=== PATIENT | male | born 1975 | race Caucasian/White ===

== ENCOUNTER 2023-07-01 13:56 | Outpatient (AMB) | payer OTHER, SELFPAY ==
[2023-07-01 14:12] VITALS: BP 122/74; PULSE 89; O2SAT 98; BMI 33.2
--- NOTE | 2023-07-01 14:12 | MHC.PC.OV ---
Vital Signs 07/01/23 14:12 Height 5 ft 11 in Weight 238 lb 2 oz BMI 33.2 BP 122/74 Blood Pressure Location Lt brachial Position Sitting Pulse 89 Pulse Source Pulse Oximeter Pulse Oximetry (%) 98 Oxygen Delivery Method Room Air Intake Visit Reasons: est care Intake Note: Patient is here as a new patient with lump on left side of neck, and he had cancer, he has also left foot pain, no injury for 2-3 months. Allergies No Known Allergies Allergy (Verified 07/01/23 14:16) Tobacco use date assessed: 07/01/23 Dental Screening Dental Screen Date: 07/01/23 Did you have a dental visit in the last 12 months?: Yes Did you have a dental problem in the last 6 months where you did not have access to dental care?: No Was dental information given to patient?: Patient has dentist HPI est care HPI Details New patient Prior PCP:?Dr. Voss Last office visit/CPE: 1.5 years Acute issue(s): Hx Skin CA 5 years ago Now has lump on L side of neck under ear L foot pain PMHx: Skin CA SurgHx: Excision of Skin Ca on back, Ear tubes, tonsils FHx: Mom: GI issues otherwise none/unknown. SocHx: No drugs. EtOH none. No drugs. [facility] Medical History (Updated 07/01/23 @ 15:03 by Dave Guevara) Sleep apnea Skin cancer Surgical History (Updated 07/01/23 @ 14:24 by Zandra Pink CMA) History of placement of ear tubes History of tonsillectomy Social History (Updated 07/01/23 @ 14:29 by Zandra Pink CMA) Household Members: Family Housing: House Patient Tobacco Use Status: Never used Tobacco e-Cigarette/Vaping Use: Never Used Substance Use Type: Marijuana Have you been hit, kicked, punched, or otherwise hurt by someone within the past year? 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 Cognitive needs: No Hearing needs: No Vision needs: Yes (reading glasses) Questionnaire Thrive Questionnaire Date Thrive assessed: 07/01/23 I am a: Patient What is your living situation today?: I have a steady place to live Within the past 12 months, did the food you bought not last and you didn't have the money to get more?: Never true Within the past 12 months, did you worry whether your food would run out before you got money to buy more?: Never true Do you have trouble paying for medicines?: No Do you have trouble getting transportation to medical appointments?: No Do you have trouble paying your heating and electricity bill?: No Do you have trouble taking care of your child, family member or friend?: No Do you have trouble with day-to-day activities such as bathing, preparing meals, shopping, managing finances, etc.?: No Are you currently unemployed and looking for a job?: No Are you interested in more education?: No AUDIT C Alcohol Use Questionnaire (AUDIT-C) 1. How often do you have a drink containing alcohol?: Never 3. How often do you have six or more drinks on one occasion?: Never Total Score: 0 JORGE-7 AMB Questionnaire JORGE-7 Date JORGE - 7 assessed: 07/01/23 Feeling nervous, anxious, or on edge: 0 = Not at all Not being able to stop or control worryin = Not at all Worrying too much about different things: 0 = Not at all Trouble relaxin = Not at all Being so restless that it is hard to sit still: 0 = Not at all Becoming easily annoyed or irritable: 0 = Not at all Feeling afraid as if something awful might happen: 0 = Not at all Total JORGE-7 score (0-4 normal; 5-9 mild; 10-14 moderate; 15-21 severe): 0 Source: Developed by Drs. Bandar Regan, Jennifer Lee, Ismael Zaragoza and colleagues, with an educational little from [employer]. Review of Systems Const Denies chills, Denies fatigue, Denies fever(s), Denies headache(s) and Denies weakness ENT Denies dizziness and Denies headache(s) Card Denies chest pain, Denies lightheadedness, Denies dyspnea and Denies other (Palpitations) Resp Denies cough, Denies dyspnea, Denies wheezing and Denies other ( shortness of breath) Musc Denies numbness and Denies tingling Neuro Denies dizziness, Denies headache(s), Denies numbness, Denies tingling, Denies paresthesias and Denies weakness Psych Denies anxiety and Denies depression Endo Denies fatigue Aller/Immun Denies wheezing Physical exam (Primary Care) Vital Signs: Last Vital Signs Pulse 89 07/01/23 14:12 BP 122/74 07/01/23 14:12 Pulse Ox 98 07/01/23 14:12 Oxygen Delivery Method Room Air 07/01/23 14:12 BMI result Body Mass Index 33.2 Tobacco/Smoking Status: Tobacco use Status Tobacco use date assessed 07/01/23 07/01/23 14:34 Patient Tobacco Use Status Never used Tobacco 07/01/23 14:34 e-Cigarette/Vaping Use Never Used 07/01/23 14:34 Thrive Assessment: Date of Thrive Assessment Date Thrive assessed 07/01/23 07/01/23 14:34 Const General: no acute distress and well developed Nutritional Appearance: well nourished Orientation/consciousness: patient oriented x3 HENMT Head: Yes normocephalic and Yes atraumatic Eyes General: appearance normal, both eyes and all related structures Pupils: Equal, round and reactive pupils present EOM: EOMs intact bilaterally Resp Effort & Inspection: normal respiratory effort Auscultation: clear to auscultation bilaterally Cardio Rate: regular rate Rhythm: regular rhythm Heart sounds: S1 normal heart sound present, S2 normal heart sound present, no gallops, no murmurs and no rubs Neuro General: patient oriented x3 and gait normal Cranial nerves: Yes Equal, round and reactive pupils present Psych Affect: normal affect Assessment and Plan Assessment & Plan (1) Plantar fasciitis, left: Code(s): M72.2 - Plantar fascial fibromatosis Plan: Demonstrated?exercises?which?he?will?try. Also?ice/heat NSAIDs If?not?improving,?will?refer?to?Podiatry (2) Mass of preauricular region: Code(s): R22.0 - Localized swelling, mass and lump, head Plan: Check?ultrasound?of?head?and?neck?to?rule?out?malignancy. Most?likely?resolving?parotitis Hydrate?well, can?use?sorry?candies,?warm?compresses?and?ibuprofen (3) Varicose veins of ankle: Code(s): I83.90 - Asymptomatic varicose veins of unspecified lower extremity Plan: Patient?stands?10-16?hours?a?day Will?send?compression?stockings?to?medical?supply?store?for?him (4) History of skin cancer: Code(s): Z85.828 - Personal history of other malignant neoplasm of skin Plan: Follow-up?with?dermatology?as?recommended (5) Laboratory exam ordered as part of routine general medical examination: Code(s): Z00.00 - Encounter for general adult medical examination without abnormal findings Plan: Check?lab Orders: Orders US soft tiss head and/or neck Today R22.0 - Localized swelling, mass and lump, head Comprehensive [place]. Panel Fast Today Z00.00 - Encounter for general adult medical examination without abnormal findings Complete Blood Count Auto Diff Today Z00.00 - Encounter for general adult medical examination without abnormal findings Lipid Panel Today Z00.00 - Encounter for general adult medical examination without abnormal findings Prostate Specific Antigen Scr Today Z12.5 - Encounter for screening for malignant neoplasm of prostate TSH reflex Free T4 Today Z00.00 - Encounter for general adult medical examination without abnormal findings UA and rflx microscopic Today Z00.00 - Encounter for general adult medical examination without abnormal findings Microalbumin, Random (w Creat) Today I10 - Essential (primary) hypertension Medications: New compr.stocking,knee,long,large 20-30?mmHg,?As directed, 90 days 12 ea 1RF I83.90 - Asymptomatic varicose veins of unspecified lower extremity Coding Level of Care Code New Pt Level 4 (09074) Diagnoses Plantar fasciitis, left M72.2 Mass of preauricular region R22.0 Varicose veins of ankle I83.90 History of skin cancer Z85.828 Laboratory exam ordered as part of routine general medical examination Z00.00
== END 2023-07-01 15:10 | disposition home or self-care (01) ==
PROVIDERS: PCP Family Medicine; Visit Provider Family Medicine
DX: M72.2 Plantar fascial fibromatosis (principal); R22.0 Localized swelling, mass and lump, head; I83.90 Asymptomatic varicose veins of unspecified lower extremity; Z85.828 Personal history of other malignant neoplasm of skin; Z00.00 Encounter for general adult medical examination without abnormal findings
CPT/HCPCS: 99204

== ENCOUNTER 2023-07-02 07:32 | Outpatient (REF) | payer OTHER, SELFPAY ==
[2023-07-02 11:39] LABS: Appearance Urine Clear; Color Urine Yellow; Glucose Urine UA Negative (Negative); Leukocyte Esterase Urine Negative (Negative); Nitrite Urine Negative (Negative); PH 5.5 (5.0-9.0); Specific Gravity - Urine 1.025 (1.005-1.025); Urine Blood Negative (Negative); Urine Ketones Negative (Negative); Urine Protein Negative (Neg-Trace)
[2023-07-02 11:51] LABS: MANUAL DIFF FLAG NO
[2023-07-02 12:07] LABS: Basophils Absolute Auto 0.1 X10*3/uL (0.0-0.2); Basophils Percent Auto 0.9 % (0-2); Eosinophils Absolute Auto 0.2 X10*3/uL (0.0-0.4); Eosinophils Percent Auto 3.1 % (0-4); Hematocrit 47.5 % (42.0-52.0); Hemoglobin 15.8 g/dl (14.0-18.0); Imm Gran Abs Auto 0.02 X10*3/uL (0.00-0.03); Imm Gran Pct Auto 0.3 % (0.0-0.4); Lymphocytes Absolute Auto 2.2 X10*3/uL (1.2-4.9); Lymphocytes Percent Auto 37.8 % (20-40); Mean Corpuscular HGB Conc 33.3 g/dl (31.0-36.0); Mean Corpuscular Hemoglobin 28.9 pg (27.0-33.0); Mean Platelet Volume 11.2 fL (9.4-12.4); Monocytes Absolute Auto 0.5 X10*3/uL (0.1-1.2); Monocytes Percent Auto 8.8 % (2-11); Neutrophils Absolute Auto 2.9 x10*3/uL (2.0-8.3); Neutrophils Percent Auto 49.1 % (45-73); Platelet Count 235 X10*3/uL (160-400); Red Blood Count 5.46 X10*6/uL (4.60-5.80); Red Cell Distribution Width 12.9 % (11.0-16.0); White Blood Count 5.8 X10*3/uL (4.8-10.8)
[2023-07-02 12:35] LABS: Alanine Aminotransferase 35 U/L (0-40); Albumin Level 4.4 g/dL (3.5-5.0); Alkaline Phosphatase 56 U/L (39-117); Anion Gap 12 (12-20); Aspartate Amino Transferase 30 U/L (5-37); Bilirubin Total 1.7 mg/dL (0.0-1.0); Blood Urea Nitrogen 13 mg/dL (9-16); Calcium 9.3 mg/dL (8.4-10.2); Carbon Dioxide 24 mmol/L (22-29); Chloride 106 mmol/L (96-108); Cholesterol 190 mg/dL (<200); Estimated Glomerular Filt Rate > 60; Glucose Fasting 98 mg/dL (60-99); HDL Cholesterol 55 mg/dL (>40); LDL Cholesterol Calculated 124 mg/dL (<100); Potassium 4.1 mmol/L (3.3-5.1); Sodium 138 mmol/L (135-145); Total Protein 7.5 g/dL (6.5-8.0); Triglycerides 57 mg/dL (<150)
[2023-07-02 12:40] LABS: Creatinine Urine 173.56 mg/dL; Microalbum/Creatinine Ratio Ur 3.4 ug/mg cr (<30)
[2023-07-02 12:47] LABS: Prostate Specific Antigen Scr 0.39 ng/mL (<0.05-4.0)
[2023-07-02 12:56] LABS: TSH reflex Free T4 1.03 uIU/mL (0.32-4.0)
== END 2023-07-02 07:33 | disposition home or self-care (01) ==
LOC: HO.WFDLDS 07:32
PROVIDERS: Visit Provider Family Medicine
DX: Z00.00 Encounter for general adult medical examination without abnormal findings (principal); Z12.5 Encounter for screening for malignant neoplasm of prostate; I10 Essential (primary) hypertension
CPT/HCPCS: 36415; 80053; 80061; 81003; 82043; 82570; 84153; 84443; 85025

== ENCOUNTER 2023-07-21 13:19 | Outpatient (REF) | payer OTHER, SELFPAY ==
--- NOTE | ~2023-07-21 | US_ITS ---
EXAMINATION: US SOFT TISSUE OF THE NECK CLINICAL INFORMATION: Localized swelling, mass and lump, head. COMPARISON: None available. TECHNIQUE: Linear transducer grayscale and color Doppler examination of the left level VA lateral submandibular area. FINDINGS: The palpable area indicated by the patient in the left preauricular area demonstrates a 1.1 x 0.4 x 1.1 cm well-defined focus with mild internal vascularity and fatty hilum and is consistent with a lymph node. A small cystic area is noted along the rim of the lymph node. US/US soft tiss head and/or neck IMPRESSION: The palpable area indicated by the patient corresponds to a normal-appearing lymph node.
== END 2023-07-21 13:20 | disposition home or self-care (01) ==
LOC: HO.US 13:19
PROVIDERS: PCP Family Medicine; Visit Provider Family Medicine
DX: R22.0 Localized swelling, mass and lump, head (principal)
CPT/HCPCS: 76536

== ENCOUNTER 2023-08-29 12:53 | Outpatient (AMB) | payer OTHER, SELFPAY ==
--- NOTE | 2023-08-29 12:57 | A.OFFPC_ITS ---
Vital Signs 08/29/23 12:58 Height 5 ft 11 in Weight 233 lb BMI 32.5 BP 110/60 Blood Pressure Location Rt brachial Position Sitting Respiration 13 Pulse 99 Pulse Source Pulse Oximeter Pulse Oximetry (%) 100 Oxygen Delivery Method Room Air Intake Visit Reasons: CPE with f/u labs and health maint Intake Note: Patient is here for a physical and to follow up on labs. Patient was wondering about compression stockings. Consignee Required: No Accompanied by: Self / Same As Patient Allergies No Known Allergies Allergy (Verified 08/29/23 13:04) Tobacco use date assessed: 07/01/23 HPI CPE with f/u labs and health maint HPI Details 48 y/o male presents for a CPE with f/u labs and health maintenance. Labs were drawn 07/02/23. Reviewed labs with pt. Triglycerides 57. TC 190. LDL 124. HDL 55. 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 Bandar Regan, Jennifer Lee, Ismael Zaragoza and colleagues, with an educational little from [employer]. Review of Systems Const Denies chills, Denies fatigue, Denies fever(s), Denies headache(s) and Denies weakness Eyes Denies change in vision ENT Denies dizziness, Denies headache(s), Denies hearing loss, Denies nasal congestion, Denies sinus pain, Denies sinus pressure and Denies sore throat Card Denies chest pain, Denies lightheadedness, Denies dyspnea and Denies other (palpitations) Resp Denies cough, Denies dyspnea and Denies wheezing GI Denies abdominal pain, Denies melena, Denies hematochezia, Denies change in bowel habits, Denies dyspepsia and Denies nausea Denies hematuria and Denies dysuria Musc Denies abnormal gait, Denies myalgias, Denies arthralgias, Denies numbness and Denies tingling Skin/Breast Denies rash, Denies unusual bruising and Denies wounds Neuro Denies abnormal gait, Denies dizziness, Denies headache(s), Denies memory loss, Denies numbness, Denies Sensory deficit (Neuro), Denies tingling and Denies weakness Psych Denies anxiety, Denies depression and Denies memory loss Endo Denies cold intolerance, Denies fatigue, Denies heat intolerance, Denies polydipsia and Denies polyuria Ramón/Lymph Denies easy bleeding and Denies easy bruising Aller/Immun Denies wheezing Physical exam (Primary Care) Vital Signs: Last Vital Signs Pulse 99 08/29/23 12:58 Resp 13 08/29/23 12:58 BP 110/60 08/29/23 12:58 Pulse Ox 100 08/29/23 12:58 Oxygen Delivery Method Room Air 08/29/23 12:58 BMI result Body Mass Index 32.5 Tobacco/Smoking Status: Tobacco use Status Tobacco use date assessed 07/01/23 08/29/23 13:04 Patient Tobacco Use Status Never used Tobacco 08/29/23 13:04 e-Cigarette/Vaping Use Never Used 08/29/23 13:04 Thrive Assessment: Date of Thrive Assessment Date Thrive assessed 07/01/23 08/29/23 13:04 Const General: no acute distress, well developed, alert and awake Nutritional Appearance: well nourished Orientation/consciousness: patient oriented x3 HENMT Head: Yes normocephalic and Yes atraumatic Ears: hearing grossly normal bilaterally and TM's normal bilaterally General nose exam: Normal external nose present and Normal nares present Mouth: Normal oral and palatal mucosa present and moist mucous membranes Teeth and gingiva: dentition normal Throat: Yes posterior oropharynx normal Eyes General: appearance normal, both eyes and all related structures Pupils: Equal, round and reactive pupils present and Pupil accommodation reflex normal EOM: EOMs intact bilaterally Neck Neck: Yes normal visual inspection, Yes no lymphadenopathy and Yes trachea midline Thyroid: Thyroid normal Carotids: no bruits Lymphatic: no lymphadenopathy noted Chest Chest palpation & inspection: normal inspection of the chest Resp Effort & Inspection: normal respiratory effort Auscultation: clear to auscultation bilaterally Cardio Rate: regular rate Rhythm: regular rhythm Heart sounds: S1 normal heart sound present, S2 normal heart sound present, no gallops, no murmurs and no rubs Bruits: no abdominal aortic bruits and no carotid bruits GI Palpation (GI): No Abdominal aortic bruit present, Soft to palpation, nontender, No hepatosplenomegaly present and No Rebound tenderness present Auscultation: normal bowel sounds General: Yes no CVA tenderness Back/Spine/Pelvis Back: no CVA tenderness Cervical Spine: cervical ROM normal and No Cervical spine tenderness Thoracic/Lumbar Spine: thoraco-lumbar ROM normal, No pain with thoraco-lumbar ROM, No thoracic spinal tenderness and No lumbar spinal tenderness Skin Lesions: no lesions Rashes: no rashes Trauma: no lacerations or abrasions Wounds: no wounds Nails: normal Neuro General: patient oriented x3 Cranial nerves: Yes Equal, round and reactive pupils present Cognition (Neuro): normal cognition Gait exam (Neuro): Normal gait present Motor exam (neuro): 5/5 motor strength present throughout Sensory Exam: No Sensory deficit (Neuro) Deep tendon reflexes (DTR's): Right patellar reflex intensity grade: 2+ and Left patellar reflex intensity grade: 2+ Extrem General: Yes normal to inspection and No edema Psych Appearance: grossly normal Affect: normal affect Attitude: cooperative Thought process: Normal thought process present Assessment and Plan Assessment & Plan (1) Adult general medical exam: Code(s): Z00.00 - Encounter for general adult medical examination without abnormal findings Plan: 48-year-old?male?presents?for?complete?physical?exam Encouraged?healthy?diet?with?active?lifestyle?and?plenty?of?exercise (2) Gastritis: Code(s): K29.70 - Gastritis, unspecified, without bleeding Plan: Likely?some?mild?gastritis/GERD?and?bloating?with?eating Avoid?trigger?foods Trial?omeprazole Referred?to?GI (3) Screening for colon cancer: Code(s): Z12.11 - Encounter for screening for malignant neoplasm of colon Plan: Referred?to?GI (4) Screening for prostate cancer: Code(s): Z12.5 - Encounter for screening for malignant neoplasm of prostate Plan: PSA?was?within?normal?limits (5) Lower extremity edema: Code(s): R60.0 - Localized edema Plan: Intermittent?lower?extremity?edema.??Patient?stands?all?day?for?work Had?given?him?a?script?for?compression?stockings?at?last?visit?but?he?did?not?ge t?them?yet.??Medical?promotions assistant sales marketing?will?refax?orders?today. Coding Level of Care Code Est Pt Level 3 (58247) Est Pt Prev Care 40-64y(31471) Diagnoses Adult general medical exam Z00.00 Gastritis K29.70 Screening for colon cancer Z12.11 Screening for prostate cancer Z12.5 Lower extremity edema R60.0
[2023-08-29 12:58] VITALS: BP 110/60; PULSE 99; RESP 13; O2SAT 100; BMI 32.5
== END 2023-08-29 13:46 | disposition home or self-care (01) ==
PROVIDERS: PCP Family Medicine; Visit Provider Family Medicine
DX: Z00.00 Encounter for general adult medical examination without abnormal findings (principal); K29.70 Gastritis, unspecified, without bleeding; Z12.11 Encounter for screening for malignant neoplasm of colon; Z12.5 Encounter for screening for malignant neoplasm of prostate; R60.0 Localized edema
CPT/HCPCS: 99213; 99396

== ENCOUNTER 2023-10-24 10:04 | Outpatient (AMB) | payer OTHER, SELFPAY ==
--- NOTE | 2023-10-24 10:08 | MHC.OFFVIS ---
Intake Vital Signs 10/24/23 10:16 Height 5 ft 11 in Weight 233 lb 11.04 oz BMI 32.6 BP 123/65 Blood Pressure Location Rt brachial Position Sitting Pulse 91 Intake Visit Reasons: Colonoscopy Screening Intake Note: Patient presents to in office visit today as a new patient for colonoscopy screening. CC: Patient states that for the last year he gets bloated from under his left rib and also it hurts to bend over. Also he c/o a burning spot to the left lower side of his back. Per patient he believes that these symptoms are related to something his eating but he can't pin-point what it is. He also states that his weight has been fluctuating a lot. Patient with hx of skin cancer and concerned for colon cancer d/t symptoms. Shipping Support Required: No Accompanied by: Self / Same As Patient Allergies No Known Allergies Allergy (Verified 10/24/23 10:23) HPI Colonoscopy Screening HPI Details 48-year-old male here for preprocedural meeting to discuss a screening colonoscopy. He is referred by Valdo Faye of [facility] [place] primary care. PMX History of skin cancer MATHEW Gastritis ? not via EGD Periauricular mass Plantar fasciitis Psoriasis * SURGICAL HISTORY Tympanostomy tubes Tonsillectomy Skin cancer excision [place] teeth extraction * ALLERGIES: NKDA * [email or web address] LABS: Laboratory Tests 07/02/23 07:32 WBC 5.8 Hct 47.5 MCV 87.0 Plt Count 235 Estimated GFR > 60 Total Bilirubin 1.7 H AST 30 ALT 35 Alkaline Phosphata se 56 TSH 1.03 TODAY'S VISIT This is his first colonoscopy He will have intermittent bloating under the left ribcage that seems to be dependent on some foods that are triggering. Eggs, sometimes pizza. Other trigger foods are: variable with chicken parmesan at some places and some steaks causing fecal urgency and diarrhea. Breads seems to promote the bloating. With the bloating, he will have burning that radiates to the upper back with a burning sensation in the back. The bloating is only when he is standing during the day, it is relieved with laying down. He has been having alot of gas lately and the pain is relieved with flatulance. His bowels are regular and the stools are soft and mostly formed. No FHX GB disease. His mother has Crohns disease. She is also allergic to yeast, sister allergic to milk. He is on omeprazole for the bloating, but this does not seem to effect it. He has MATHEW and is on CPCP, no cardiac problems. There are no prior problems with anesthesia or sedation. s. No ID problems. There is no known FHX of crc or polyps. Trial simethicone and give FODMAP diet. [facility] Medical History Screening for prostate cancer Screening for colon cancer Adult general medical exam History of skin cancer Laboratory exam ordered as part of routine general medical examination Sleep apnea Skin cancer Surgical History H/O local excision of skin lesion History of placement of ear tubes History of tonsillectomy Social History Household Members: Family Housing: House Patient Tobacco Use Status: Never used Tobacco e-Cigarette/Vaping Use: Never Used Substance Use Type: Marijuana Special jeet needs: No service: No Current occupational status: employed 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 Cognitive needs: No Hearing needs: No Vision needs: Yes (reading glasses) Review of Systems Const Denies fatigue, Denies fever(s), Denies night sweats, Denies poor appetite and Denies weight loss ENT Reports Normal hearing present, Denies dental pain, Denies dysphagia, Denies hearing loss, Denies mouth pain, Denies odynophagia, Denies throat swelling, Denies tongue swelling and Reports other (Dentition adequate) Card Reports no additional complaints Resp Reports no additional complaints GI Details: Reports abdominal pain, Denies melena, Reports bloating, Denies hematochezia, Denies constipation, Denies GI cramping, Denies dysphagia, Denies excessive flatus, Denies early satiety, Denies heartburn, Denies diarrhea, Denies nausea, Denies odynophagia, Denies vomiting and Denies hematemesis Skin/Breast Denies pruritus, Denies lesions, Denies rash and Denies jaundice Neuro Reports Normal hearing present and Denies Abnormal speech present Endo Denies fatigue Aller/Immun Denies throat swelling and Denies tongue swelling Physical Exam Vital Signs: Last Vital Signs Pulse 91 10/24/23 10:16 BP 123/65 10/24/23 10:16 BMI result Body Mass Index 32.6 Const General: cooperative, no acute distress, well developed and well groomed Nutritional Appearance: well nourished and obese Orientation/consciousness: oriented to person, oriented to place and oriented to time Limitations: No language barrier HEENT Head: Yes normocephalic and Yes atraumatic Eyes General: appearance normal, both eyes and all related structures Pupils: Equal, round and reactive pupils present Neck Neck: Yes normal visual inspection and Yes no lymphadenopathy Thyroid: Thyroid normal Resp Effort & Inspection: normal respiratory effort and able to speak in complete sentences Auscultation: clear to auscultation bilaterally Cardio Rate: regular rate Rhythm: regular rhythm Heart sounds: Normal, physiologic split S2 sound present Peripheral pulses: radial pulses present and posterior tibial pulses present GI Inspection: No distended, No Abdominal panniculus present and Yes obesity Palpation (GI): Soft to palpation, nontender, no guarding, not rigid and No hepatosplenomegaly present Percussion: Yes normal to percussion Auscultation: normal bowel sounds Rectal Exam - Male: Yes deferred Skin General skin exam: no rashes or lesions noted, turgor normal, skin not dry, no jaundice, No spider nevi and no striae Rashes: no rashes Nails: normal Neuro General: oriented to person, oriented to place and oriented to time Cranial nerves: Yes Equal, round and reactive pupils present and Yes Normal hearing present Speech: No Abnormal speech present Extrem General: Yes normal to inspection, No clubbing, No cyanosis and No edema Psych Appearance: grossly normal and well kempt Mental Status: mental status grossly normal Speech and movement: Normal speech and movement present Affect: normal affect Attitude: cooperative Thought process: Normal thought process present and not confabulating Thought content: Normal thought content present Insight: Fair insight present (Psych) Judgement: Fair judgement present (Psych) Assessment & Plan Assessment & Plan (1) Pre-op examination: Code(s): Z01.818 - Encounter for other preprocedural examination (2) Sleep apnea: Code(s): G47.30 - Sleep apnea, unspecified (3) Abdominal bloating: Code(s): R14.0 - Abdominal distension (gaseous) Plan This is his first colonoscopy He will have intermittent bloating under the left ribcage that seems to be dependent on some foods that are triggering. Eggs, sometimes pizza. Other trigger foods are: variable with chicken parmesan at some places and some steaks causing fecal urgency and diarrhea. Breads seems to promote the bloating. With the bloating, he will have burning that radiates to the upper back with a burning sensation in the back. The bloating is only when he is standing during the day, it is relieved with laying down. He has been having alot of gas lately and the pain is relieved with flatulance. His bowels are regular and the stools are soft and mostly formed. No FHX GB disease. His mother has Crohns disease. She is also allergic to yeast, sister allergic to milk. He is on omeprazole for the bloating, but this does not seem to effect it. He has MATHEW and is on CPCP, no cardiac problems. There are no prior problems with anesthesia or sedation. s. No ID problems. There is no known FHX of crc or polyps. Trial simethicone and give FODMAP diet. Orders: Orders Colonoscopy - GI Use Only 10/24/23 Z01.818 - Encounter for other preprocedural examination Medications: New sod sulf-pot chloride-mag sulf 1.479-0.188- 0.225 gram (Sutab) PO PER PKG DIR for colonoscopy prep 24 tabs 0RF simethicone (Gas Relief (simethicone)) 125 mg PO TID PRN 30 tabs 6RF abdominal distention R14.0 - Abdominal distension (gaseous) Coding Level of Care Code New Pt Level 3 (46935) Diagnoses Pre-op examination Z01.818 Sleep apnea G47.30 Abdominal bloating R14.0
[2023-10-24 10:16] VITALS: BP 123/65; PULSE 91; BMI 32.6
== END 2023-10-24 10:56 | disposition home or self-care (01) ==
PROVIDERS: PCP Family Medicine; Visit Provider Nurse Practitioner
DX: Z01.818 Encounter for other preprocedural examination (principal); G47.30 Sleep apnea, unspecified; R14.0 Abdominal distension (gaseous)
CPT/HCPCS: S0285

== ENCOUNTER → 2023-10-24 10:04 | Outpatient (BNVA) | payer OTHER, SELFPAY | PROVIDERS: PCP Family Medicine; Visit Provider Nurse Practitioner ==

== ENCOUNTER 2024-01-30 09:08 | Day surgery (SDC) | payer OTHER, SELFPAY ==
--- NOTE | 2024-01-28 14:41 | P.CONAN_ITS ---
HPI - Anesthesia Eval Consult details Narrative: 48yo M for Colonoscopy PMFSH Active Problems Active Problems: All Active Problems Abdominal bloating (Acute) Sleep apnea (Acute) Pre-op examination (Acute) Gastritis (Acute) Preauricular mass (Acute) Plantar fasciitis, left (Acute) Lump of skin (Acute) Past Medical History Medical History Screening for prostate cancer Screening for colon cancer Adult general medical exam History of skin cancer Laboratory exam ordered as part of routine general medical examination Sleep apnea Skin cancer Surgical History Surgical History H/O local excision of skin lesion History of placement of ear tubes History of tonsillectomy Social History Social History Household Members: Family Housing: House Patient Tobacco Use Status: Never used Tobacco e-Cigarette/Vaping Use: Never Used Substance Use Type: Marijuana Special jeet needs: No service: No Current occupational status: employed 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
[2024-01-29 06:49] VITALS: BMI 32.5
[2024-01-30 10:31] VITALS: BP 125/86; PULSE 74; RESP 16; TEMP 36.9; O2SAT 96
[2024-01-30] MEDS: Lactated Ringers 1,000 ML 100 ML IVCONT (10:44)
--- NOTE | 2024-01-30 11:30 | P.HPSUR_ITS ---
Pre-Procedural Eval Section A - 24 Hr Update-Section A only Date of Service: 01/30/24 Section B - Complete if H&P > 30 days Chief Complaint: screening Relevant Family History (Specify if Yes): No Relevant Social History: None Present Medications: see Short Stay Collaborative assessment Medical History: Significant History (History of skin cancer MATHEW Gastritis ? not via EGD Periauricular mass Plantar fasciitis Psoriasis) History of Previous Operations: Relevant previous surgery/procedure and date(s) (Tympanostomy tubes Tonsillectomy Skin cancer excision [place] teeth ext raction) Allergies: Allergies Allergy/AdvReac Type Severity Reaction Status Date / Time No Known Allergies Allergy Verified 01/30/24 09:55 Review of Systems Sugical H&P ROS: Negative: Constitution, Cardiovascular, Respiratory, Neurological, Psychiatric, Hem-Onc, Allergic/Immunologic, Gastrointestinal, Genitourinary, Musculoskeletal, Integumentary, Endocrine and Eyes/Ears/Nose/Throat Exam Surgical H&P Exam: Normal: HEENT, Normal: Heart, Normal: Lungs, Normal: Extremities, Normal: Abdomen, Normal: Skin and Normal: Neurological Plan Diagnosis/Plan: Unchanged I have reviewed the history and physical and performed a pertinent physical examination on my patient. No changes have occurred unless specified. Time Spent With Patient Time: Total time managing care of this patient today ____ minutes.
--- NOTE | 2024-01-30 11:46 | P.CONAN_ITS ---
[facility] Active Problems Active Problems: All Active Problems Abdominal bloating (Acute) Sleep apnea (Acute) Pre-op examination (Acute) Gastritis (Acute) Preauricular mass (Acute) Plantar fasciitis, left (Acute) Lump of skin (Acute) Past Medical History Medical History Screening for prostate cancer Screening for colon cancer Adult general medical exam History of skin cancer Laboratory exam ordered as part of routine general medical examination Sleep apnea Skin cancer Functional capacity: independent ambulation Family History Family history of problems with anesthesia: No Surgical History Surgical History H/O local excision of skin lesion History of placement of ear tubes History of tonsillectomy History of Problems with Anesthesia: No Social History Social History Household Members: Family Housing: House Patient Tobacco Use Status: Never used Tobacco e-Cigarette/Vaping Use: Never Used Use of substances other than those prescribed or required for medical reasons: No Substance Use Type: Marijuana Special jeet needs: No Are you DNR?: No Advance Directives: No Advance Directives Information Provided: Yes service: No Current occupational status: employed 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 Cognitive needs: No Hearing needs: No Vision needs: Yes (reading glasses) Meds Allergies Allergy/AdvReac Type Severity Reaction Status Date / Time No Known Allergies Allergy Verified 01/30/24 09:55 Active Medications: Current Medications Lactated Ringer's (Lr) 1,000 mls @ 100 mls/hr IVCONT .Q10H BEN Last Admin: 01/30/24 10:44 Dose: 100 mls/hr Home Medications ?Medication ?Instructions ?Recorded ?Confirmed ?Last Taken ?Type clobetasol 0.05 % topical cream 1 appl topical DAILY 07/01/23 01/30/24 Unknown History CPAP (CPAP Machine/Device) 10/24/23 Unknown History clobetasol 0.05 % topical ointment 1 appl topical BID 10/24/23 01/30/24 Unknown History Exam Height,Weight and Vital Signs: Height 5 ft 11 in Weight 105.687 kg Last Vital Signs Temp 98.5 F 01/30/24 10:31 Pulse 74 01/30/24 10:31 Resp 16 01/30/24 10:31 BP 125/86 01/30/24 10:31 Pulse Ox 96 01/30/24 10:31 O2 Del Method Room Air 01/30/24 10:31 Airway Mallampati Class: III TM Dist: >3cm Neck ROM: Full Heart: RTR Lungs: CTA Assessment and Plan Assessment Anesthesia Assessment: Anesthesia Plan Discussed Final Anesthetic Review Family History of Problems with Anesthesia: No History of Problems with Anesthesia: No NPO: Yes ASA Class: II and III Final Preanesthetic Review: Meds/Allgs Chart Reviewed, Consent Obtained/Reviewed and Anes Risks/Benef Reviewed Patient Risk: Low Procedure Risk: Low Anesthetic Plan Anesthetic Plan: MAC: Disposition: Standard PACU
--- NOTE | 2024-01-30 12:25 | HO.OPN-COLON ---
Colonoscopy Operative Note Operative Note Date of Service: 01/30/24 Narrative: Operative Information Procedure Description: Colonoscopy Indication: Anesthesia: MAC COLONOSCOPY Instrument: Olympus variable stiffness ADULT scope 190L Colonoscopy Monitoring: Vital signs and clinical assessment, continuous EKG monitoring, Pulse oximetry, Carbon Dioxide monitoring and blood pressure monitoring were done throughout the procedure. Colon withdrawal time was 12 minutes. Procedure: The patient was placed in the left lateral decubitis position and pre-procedure medications were administered. After a digital rectal examination of the ano-rectum, the video colonoscope was inserted into the rectum and advanced through the colon to the cecum/TI. The colonoscope was slowly withdrawn in a retrograde panoramic fashion and the colon mucosa was carefully examined including a retroflexed view of the rectum. Findings and interventions are described below. Procedure Difficulty: easy Findings: Terminal Ileum-normal Cecum: flat polyp 8-10 mm, lifted with eleview injection and then removed w/ cold snare, uncertain if retrieved Ascending Colon: normal Transverse Colon -normal Descending Colon:normal Sigmoid Colon: normal Rectum: Retroflexion with small internal hemorrhoids seen, grade I Anorectum - normal Intervention: cold snare and eleview injection with lift (EMR) Colon preparation: [place] Bowel Preparation Scale Right colon; 2 Transverse colon: 2 Left colon; 2 (0 = Unprepared colon segment with mucosa not seen due to solid stool that cannot be cleared. 1 = Portion of mucosa of the colon segment seen, but other areas of the colon segment not well seen due to staining, residual stool and/or opaque liquid. 2 = Minor amount of residual staining, small fragments of stool and/or opaque liquid, but mucosa of colon segment seen well. 3 = Entire mucosa of colon segment seen well with no residual staining, small fragments of stool or opaque liquid) Impression and Post Procedure Diagnosis: colon polyp internal hemorrhoids Plan: High fiber diet leaflet Avoid straining at stool, epsom salts and sitz bath, anusol supps or cream Repeat Colonoscopy in 5 years due to flat polyp in right colon or earlier if clinically indicated Above findings were reviewed with the patient and relevant handouts were provided if indicated.
[2024-01-30 13:05] VITALS: BP 99/49; PULSE 70; RESP 12; TEMP 36.1; O2SAT 97
[2024-01-30 13:20] VITALS: BP 111/73; PULSE 68; RESP 16; TEMP 36.1; O2SAT 97
--- NOTE | 2024-01-30 15:30 | HO.POSTANES ---
Post Anesthesia Evaluation Post Anesthesia Evaluation Date of Service: 01/30/24 Vital Signs: Vital Signs Temp Pulse Resp BP Pulse Ox O2 Del Method 01/30/24 13:20 97 F 68 16 111/73 97 Room Air 01/30/24 13:05 97 F 70 12 99/49 L 97 Room Air 01/30/24 10:31 98.5 F 74 16 125/86 96 Room Air Anesthesia: Monitored Mental Status: Awake Pain Control: Satisfactory Nausea/Vomiting: None Hydration: Adequate Anesthesia-Related Issues: No Anes. Related Issues
== END 2024-01-30 13:35 | disposition home or self-care (01) ==
PROVIDERS: PCP Family Medicine; Visit Provider Internal Medicine Gastroenterology
PROC: 0DJD8ZZ Inspection of Lower Intestinal Tract, Via Natural or Artificial Opening Endoscopic (ICD-10-PCS; CPT 45378; principal; 2024-01-30 11:50)
DX: Z12.11 Encounter for screening for malignant neoplasm of colon (principal); D12.0 Benign neoplasm of cecum; K64.0 First degree hemorrhoids; R14.0 Abdominal distension (gaseous); G47.33 Obstructive sleep apnea (adult) (pediatric); Z99.89 Dependence on other enabling machines and devices
CPT/HCPCS: 45385; 45381; 88305; J2704

== ENCOUNTER → 2024-01-30 09:08 | Outpatient (BNV) | payer OTHER, SELFPAY | PROVIDERS: PCP Family Medicine; Visit Provider Internal Medicine Gastroenterology | DX: K63.5 Polyp of colon (principal) | CPT/HCPCS: 45385 ==

== ENCOUNTER 2024-02-13 07:52 | Outpatient (AMB) | payer OTHER, SELFPAY ==
--- NOTE | 2024-02-13 07:59 | A.OFFVIS_ITS ---
Vital Signs 02/13/24 08:02 Height 5 ft 11 in Weight 225 lb BMI 31.4 BP 122/69 Blood Pressure Location Lt brachial Position Sitting Pulse 88 Intake Visit Reasons: s/p colon Intake Note: Patient follow up for Colonoscopy results. Patient cc: abdominal bloating , LLQ pain, gas and burning on his back after one hour of eating. Advertising Dispatch Clerk Required: No Accompanied by: Self / Same As Patient Allergies No Known Allergies Allergy (Verified 02/13/24 07:58) HPI HPI s/p colon: Details: Assessment & Plan (1) Pre-op examination: Code(s): Z01.818 - Encounter for other preprocedural examination (2) Sleep apnea: Code(s): G47.30 - Sleep apnea, unspecified (3) Abdominal bloating: Code(s): R14.0 - Abdominal distension (gaseous) Plan This is his first colonoscopy He will have intermittent bloating under the left ribcage that seems to be dependent on some foods that are triggering. Eggs, sometimes pizza. Other trigger foods are: variable with chicken parmesan at some places and some steaks causing fecal urgency and diarrhea. Breads seems to promote the bloating. With the bloating, he will have burning that radiates to the upper back with a burning sensation in the back. The bloating is only when he is standing during the day, it is relieved with laying down. He has been having alot of gas lately and the pain is relieved with flatulance. His bowels are regular and the stools are soft and mostly formed. No FHX GB disease. His mother has Crohns disease. She is also allergic to yeast, sister allergic to milk. He is on omeprazole for the bloating, but this does not seem to effect it. He has MATHEW and is on CPCP, no cardiac problems. There are no prior problems with anesthesia or sedation. s. No ID problems. There is no known FHX of crc or polyps. Trial simethicone and give FODMAP diet. Orders: Orders Colonoscopy - GI Use Only 10/24/23 Z01.818 - Encounter for other preprocedural examination Medications: New sod sulf-pot chloride-mag sulf 1.479-0.188- 0.225 gram (Sutab) PO PER PKG DIR for colonoscopy prep 24 tabs 0RF simethicone (Gas Relief (simethicone)) 125 mg PO TID PRN 30 tabs 6RF abdominal distention R14.0 - Abdominal distension (gaseous) COLONOSCOPY 01/30/24 Findings: Terminal Ileum-normal Cecum: flat polyp 8-10 mm, lifted with eleview injection and then removed w/ cold snare, uncertain if retrieved Ascending Colon: normal Transverse Colon -normal Descending Colon:normal Sigmoid Colon: normal Rectum: Retroflexion with small internal hemorrhoids seen, grade I Anorectum - normal Intervention: cold snare and eleview injection with lift (EMR) Impression and Post Procedure Diagnosis: colon polyp internal hemorrhoids Plan: High fiber diet leaflet Avoid straining at stool, epsom salts and sitz bath, anusol supps or cream Repeat Colonoscopy in 5 years due to flat polyp in right colon or earlier if clinically indicated BIOPSY Received: 01/30/24 Diagnosis Cecum, polypectomy: Tubular adenoma; negative for high-grade dysplasia or carcinoma; multiple additional levels examined TODAY'S VISIT He is agreeable to a 5 year recall. He had some N/V with the Sutab - consider Suprep instead next time. The procedure was well tolerated. The results were explained and the patient is agreeable to the follow-up interval as stated. The bowel pattern has returned to normal. Education was provided to tell any 1st degree relatives about their findings to be sure that they are screened by age 45. Educated that they will be put on a recall list when it is time for their repeat scope but should they move out of state or away from the hospital they will need to remember along with their primary to repeat the procedure in a timely fashion to avoid any adverse complications. He still has bloating, trial of creon - no more insight into triggering foods. Could also consider treating for SIBO depending on his response. He denies any constipation. Return office visit in 6 weeks [facility] Medical History Screening for prostate cancer Screening for colon cancer Adult general medical exam History of skin cancer Laboratory exam ordered as part of routine general medical examination Sleep apnea Skin cancer Surgical History H/O local excision of skin lesion History of placement of ear tubes History of tonsillectomy Social History Household Members: Family Housing: House Patient Tobacco Use Status: Never used Tobacco e-Cigarette/Vaping Use: Never Used Substance Use Type: Marijuana Special jeet needs: No service: No Current occupational status: employed 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 Cognitive needs: No Hearing needs: No Vision needs: Yes (reading glasses) Review of Systems Const Denies fatigue, Denies fever(s), Denies night sweats, Denies poor appetite and Denies weight loss ENT Reports Normal hearing present, Denies dental pain, Denies dysphagia, Denies hearing loss, Denies mouth pain, Denies odynophagia, Denies throat swelling, Denies tongue swelling and Reports other (Dentition adequate) Card Reports no additional complaints Resp Reports no additional complaints GI Details: Denies abdominal pain, Denies melena, Reports bloating, Denies hematochezia, Denies constipation, Denies GI cramping, Denies dysphagia, Reports excessive flatus, Denies early satiety, Denies heartburn, Denies diarrhea, Denies nausea, Denies odynophagia, Denies vomiting and Denies hematemesis Skin/Breast Denies pruritus, Denies lesions, Denies rash and Denies jaundice Neuro Reports Normal hearing present and Denies Abnormal speech present Endo Denies fatigue Aller/Immun Denies throat swelling and Denies tongue swelling Physical Exam Vital Signs: Last Vital Signs Pulse 88 02/13/24 08:02 BP 122/69 02/13/24 08:02 BMI result Body Mass Index 31.4 Const General: cooperative, no acute distress, well developed and well groomed Nutritional Appearance: well nourished and obese Orientation/consciousness: oriented to person, oriented to place and oriented to time Limitations: No language barrier HEENT Head: Yes normocephalic and Yes atraumatic Eyes General: appearance normal, both eyes and all related structures Pupils: Equal, round and reactive pupils present Neck Neck: Yes normal visual inspection and Yes no lymphadenopathy Thyroid: Thyroid normal Resp Effort & Inspection: normal respiratory effort and able to speak in complete sentences Auscultation: clear to auscultation bilaterally Cardio Rate: regular rate Rhythm: regular rhythm Heart sounds: Normal, physiologic split S2 sound present Peripheral pulses: radial pulses present and posterior tibial pulses present GI Inspection: No distended, No Abdominal panniculus present and Yes obesity Palpation (GI): Soft to palpation, nontender, no guarding, not rigid and No hepatosplenomegaly present Percussion: Yes normal to percussion Auscultation: normal bowel sounds Rectal Exam - Male: Yes deferred Skin General skin exam: no rashes or lesions noted, turgor normal, skin not dry, no jaundice, No spider nevi and no striae Rashes: no rashes Nails: normal Neuro General: oriented to person, oriented to place and oriented to time Cranial nerves: Yes Equal, round and reactive pupils present and Yes Normal hearing present Speech: No Abnormal speech present Extrem General: Yes normal to inspection, No clubbing, No cyanosis and No edema Psych Appearance: grossly normal and well kempt Mental Status: mental status grossly normal Speech and movement: Normal speech and movement present Affect: normal affect Attitude: cooperative Thought process: Normal thought process present and not confabulating Thought content: Normal thought content present Insight: Limited insight present (Psych) Judgement: Limited judgement present (Psych) Assessment & Plan Assessment & Plan (1) Tubular adenoma of colon: Comment: 01/2024 SCOPE= TA REPEAT IN 5 YEARS Code(s): D12.6 - Benign neoplasm of colon, unspecified Category: Medical (2) Abdominal bloating: Code(s): R14.0 - Abdominal distension (gaseous) Category: Medical (3) IBS (irritable bowel syndrome): Code(s): K58.9 - Irritable bowel syndrome without diarrhea Category: Medical Plan He is agreeable to a 5 year recall. He had some N/V with the Sutab - consider Suprep instead next time. The procedure was well tolerated. The results were explained and the patient is agreeable to the follow-up interval as stated. The bowel pattern has returned to normal. Education was provided to tell any 1st degree relatives about their findings to be sure that they are screened by age 45. Educated that they will be put on a recall list when it is time for their repeat scope but should they move out of state or away from the hospital they will need to remember along with their primary to repeat the procedure in a timely fashion to avoid any adverse complications. He still has bloating, trial of creon - no more insight into triggering foods. Could also consider treating for SIBO depending on his response. He denies any constipation. Return office visit in 6 weeks Orders: Orders Rast Allergen Today K58.9 - Irritable bowel syndrome without diarrhea, R14.0 - Abdominal distension (gaseous) Medications: New hyuaiu-honoohhx-ydkohzv 36,000-114,000- 180,000 unit (Creon) administer with meals and/or snacks 2 caps PO BID 120 caps 6RF K58.9 - Irritable bowel syndrome without diarrhea, R14.0 - Abdominal distension (gaseous) Coding Level of Care Code Est Pt Level 4 (52363) Diagnoses Tubular adenoma of colon D12.6 Abdominal bloating R14.0 IBS (irritable bowel syndrome) K58.9 Time Spent (min) 38
[2024-02-13 08:02] VITALS: BP 122/69; PULSE 88; BMI 31.4
== END 2024-02-13 08:49 | disposition home or self-care (01) ==
PROVIDERS: PCP Family Medicine; Visit Provider Nurse Practitioner
DX: D12.6 Benign neoplasm of colon, unspecified (principal); R14.0 Abdominal distension (gaseous); K58.9 Irritable bowel syndrome, unspecified
CPT/HCPCS: 99214

== ENCOUNTER 2024-02-13 07:52 | Outpatient (REF) | payer OTHER, SELFPAY | END 2024-02-13 07:53 | disposition home or self-care (01) | LOC: HO.LAB 07:52 | PROVIDERS: PCP Family Medicine; Visit Provider Nurse Practitioner | DX: K58.9 Irritable bowel syndrome, unspecified (principal); R14.0 Abdominal distension (gaseous) | CPT/HCPCS: 36415; 86003 ==

== ENCOUNTER 2024-07-20 13:58 | Outpatient (AMB) | payer OTHER, SELFPAY ==
[2024-07-20 14:03] VITALS: BP 127/81; PULSE 78; BMI 35.7
--- NOTE | 2024-07-20 14:03 | A.OFFVIS_ITS ---
Vital Signs 07/20/24 14:03 Height 5 ft 11 in Weight 255 lb 11.779 oz BMI 35.7 BP 127/81 Blood Pressure Location Lt brachial Position Sitting Pulse 78 Intake Visit Reasons: 2 month follow up Intake Note: Palmer returns in 2 months follow up of abd bloating. CC: Patient reports that he has gained a lot of weight since his last visit and is not sure if the medications prescribed would contribute to it. Patient states that the medications has helped with abdominal bloating. He's had only 2 episodes of left flank sharp pain since his last visit. Wool Scourer Required: No Accompanied by: Self / Same As Patient Allergies No Known Allergies Allergy (Verified 07/20/24 14:13) HPI HPI 2 month follow up: Details: Assessment & Plan (1) Tubular adenoma of colon: Comment: 01/2024 SCOPE= TA REPEAT IN 5 YEARS Code(s): D12.6 - Benign neoplasm of colon, unspecified Category: Medical (2) Abdominal bloating: Code(s): R14.0 - Abdominal distension (gaseous) Category: Medical (3) IBS (irritable bowel syndrome): Code(s): K58.9 - Irritable bowel syndrome without diarrhea Category: Medical Plan He is agreeable to a 5 year recall. He had some N/V with the Sutab - consider Suprep instead next time. The procedure was well tolerated. The results were explained and the patient is agreeable to the follow-up interval as stated. The bowel pattern has returned to normal. Education was provided to tell any 1st degree relatives about their findings to be sure that they are screened by age 45. Educated that they will be put on a recall list when it is time for their repeat scope but should they move out of state or away from the hospital they will need to remember along with their primary to repeat the procedure in a timely fashion to avoid any adverse complications. He still has bloating, trial of creon - no more insight into triggering foods. Could also consider treating for SIBO depending on his response. He denies any constipation. Return office visit in 6 weeks Orders: Orders Rast Allergen Today K58.9 - Irritable bowel syndrome without diarrhea, R14.0 - Abdominal distension (gaseous) Medications: New gvooyz-qmwwmtii-uqqhxcg 36,000-114,000- 180,000 unit (Creon) administer with meals and/or snacks 2 caps PO BID 120 caps 6RF K58.9 - Irritable bowel syndrome without diarrhea, R14.0 - Abdominal distension (gaseous) LABS: RAST PANEL SHOWS NO SIGNIFICANT FOOD ALLERGIES TODAY'S VISIT He continues to have unexplained sneezing and congestion with uncertain triggers. He has has similar sx when eating out, and in airports etc. Does not seem to be a common food allergy. His insurance covered Pancreaz and not creon, but this is working well for his bloating. ROV 6 mos. [facility] Medical History (Updated 07/20/24 @ 14:14 by MAURICE Crisostomo) Lump of skin Gastritis Pre-op examination Screening for prostate cancer Screening for colon cancer Adult general medical exam History of skin cancer Laboratory exam ordered as part of routine general medical examination Sleep apnea Skin cancer Surgical History H/O local excision of skin lesion History of placement of ear tubes History of tonsillectomy Social History Household Members: Family Housing: House Patient Tobacco Use Status: Never used Tobacco e-Cigarette/Vaping Use: Never Used Substance Use Type: Marijuana Special jeet needs: No service: No Current occupational status: employed 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 Cognitive needs: No Hearing needs: No Vision needs: Yes (reading glasses) Review of Systems Const Denies fatigue, Denies fever(s), Denies night sweats, Denies poor appetite and Denies weight loss Eyes Details: glasses Reports requires corrective lenses ENT Reports Normal hearing present, Denies dental pain, Denies dysphagia, Denies hearing loss, Denies mouth pain, Denies odynophagia, Denies throat swelling, Denies tongue swelling and Reports other (Dentition adequate) Card Reports no additional complaints Resp Reports no additional complaints GI Details: Denies abdominal pain, Denies melena, Reports bloating, Denies hematochezia, Denies constipation, Denies GI cramping, Denies dysphagia, Denies excessive flatus, Denies early satiety, Denies heartburn, Denies diarrhea, Reports loose stools, Denies nausea, Denies odynophagia, Denies vomiting and Denies hematemesis Skin/Breast Denies pruritus, Denies lesions, Denies rash and Denies jaundice Neuro Reports Normal hearing present and Denies Abnormal speech present Endo Denies fatigue Aller/Immun Details: sneezing Denies throat swelling and Denies tongue swelling Physical Exam Vital Signs: Last Vital Signs Pulse 78 07/20/24 14:03 BP 127/81 07/20/24 14:03 BMI result Body Mass Index 35.7 Const General: cooperative, no acute distress, well developed and well groomed Nutritional Appearance: well nourished and obese Orientation/consciousness: oriented to person, oriented to place and oriented to time Limitations: No language barrier HEENT Head: Yes normocephalic and Yes atraumatic Eyes General: appearance normal, both eyes and all related structures Pupils: Equal, round and reactive pupils present Neck Neck: Yes normal visual inspection and Yes no lymphadenopathy Thyroid: Thyroid normal Resp Effort & Inspection: normal respiratory effort and able to speak in complete sentences Auscultation: clear to auscultation bilaterally Cardio Rate: regular rate Rhythm: regular rhythm Heart sounds: Normal, physiologic split S2 sound present Peripheral pulses: radial pulses present and posterior tibial pulses present GI Inspection: No distended, No Abdominal panniculus present and Yes obesity Palpation (GI): Soft to palpation, nontender, no guarding, not rigid and No hepatosplenomegaly present Percussion: Yes normal to percussion Auscultation: normal bowel sounds Rectal Exam - Male: Yes deferred Skin General skin exam: no rashes or lesions noted, turgor normal, skin not dry, no jaundice, No spider nevi and no striae Rashes: no rashes Nails: normal Neuro General: oriented to person, oriented to place and oriented to time Cranial nerves: Yes Equal, round and reactive pupils present and Yes Normal hearing present Speech: No Abnormal speech present Extrem General: Yes normal to inspection, No clubbing, No cyanosis and No edema Psych Appearance: grossly normal and well kempt Mental Status: mental status grossly normal Speech and movement: Normal speech and movement present Affect: normal affect Attitude: cooperative Thought process: Normal thought process present and not confabulating Thought content: Normal thought content present Insight: Fair insight present (Psych) Judgement: Fair judgement present (Psych) Results Reviewed Results Reviewed: LABS: RAST PANEL SHOWS NO SIGNIFICANT FOOD ALLERGIES Assessment & Plan Assessment & Plan (1) IBS (irritable bowel syndrome): Code(s): K58.9 - Irritable bowel syndrome, unspecified Category: Medical (2) Abdominal bloating: Code(s): R14.0 - Abdominal distension (gaseous) Category: Medical Plan He continues to have unexplained sneezing and congestion with uncertain triggers. He has has similar sx when eating out, and in airports etc. Does not seem to be a common food allergy. His insurance covered Pancreaz and not creon, but this is working well for his bloating. ROV 6 mos. Medications: Changed From [id number]-baazvqlp-qvywoqt 37,000-97,300- 149,900 unit administer with meals and/or snacks 2 caps PO BID 30 days 120 caps 1RF To kmsydm-gcryjuix-idlayvf 37,000-97,300- 149,900 unit (Pancreaze) administer with meals and/or snacks 2 caps PO BID 120 caps 6RF 30 days Coding Level of Care Code Est Pt Level 3 (60604) Diagnoses IBS (irritable bowel syndrome) K58.9 Abdominal bloating R14.0
== END 2024-07-21 15:27 | disposition home or self-care (01) ==
PROVIDERS: PCP Family Medicine; Visit Provider Nurse Practitioner
DX: K58.9 Irritable bowel syndrome, unspecified (principal); R14.0 Abdominal distension (gaseous)
CPT/HCPCS: 99213

== ENCOUNTER → 2024-07-20 13:58 | Outpatient (BNVA) | payer OTHER, SELFPAY | PROVIDERS: PCP Family Medicine; Visit Provider Nurse Practitioner ==

== ENCOUNTER 2025-01-11 13:48 | Outpatient (AMB) | payer OTHER, SELFPAY ==
--- NOTE | 2025-01-11 13:52 | MHC.OFFVIS ---
Vital Signs 01/11/25 13:53 Height 5 ft 11 in Weight 246 lb 14.684 oz BMI 34.4 BP 126/82 Blood Pressure Location Lt brachial Position Sitting Pulse 77 Intake Visit Reasons: IBS 6 Months f/u Intake Note: Palmer presents in the office as a 6 month follow up for IBS. CC: States that he is feeling okay and not having any concerns at this time. Driver Guard Required: No Allergies No Known Allergies Allergy (Verified 01/11/25 13:53) HPI HPI IBS 6 Months f/u: Details: Assessment & Plan (1) IBS (irritable bowel syndrome): Code(s): K58.9 - Irritable bowel syndrome, unspecified Category: Medical (2) Abdominal bloating: Code(s): R14.0 - Abdominal distension (gaseous) Category: Medical Plan He continues to have unexplained sneezing and congestion with uncertain triggers. He has has similar sx when eating out, and in airports etc. Does not seem to be a common food allergy. His insurance covered Pancreaz and not creon, but this is working well for his bloating. ROV 6 mos. Medications: Changed From [id number]-zzdfqkdk-vfbbafo 37,000-97,300- 149,900 unit administer with meals and/or snacks 2 caps PO BID 30 days 120 caps 1RF To [id number]-hoxacyaq-yeqnjpn 37,000-97,300- 149,900 unit (Pancreaze) administer with meals and/or snacks 2 caps PO BID 120 caps 6RF 30 days TODAY'S VISIT He is annoyed because he had to wait for his appointment as we are running late. While I do not blame him I have little control over how some of our days seem to play out. He continues to do well on his Creon in his happy and quite stable on that. Return office visit in 1 year since he is stable. [facility] Medical History Lump of skin Gastritis Pre-op examination Screening for prostate cancer Screening for colon cancer Adult general medical exam History of skin cancer Laboratory exam ordered as part of routine general medical examination Sleep apnea Skin cancer Surgical History H/O local excision of skin lesion History of placement of ear tubes History of tonsillectomy Social History Household Members: Family Housing: House Patient Tobacco Use Status: Never used Tobacco e-Cigarette/Vaping Use: Never Used Substance Use Type: Marijuana Special jeet needs: No service: No Current occupational status: employed 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 Cognitive needs: No Hearing needs: No Vision needs: Yes (reading glasses) Review of Systems Const Denies fatigue, Denies fever(s), Denies night sweats, Denies poor appetite and Denies weight loss ENT Reports Normal hearing present, Denies dental pain, Denies dysphagia, Denies hearing loss, Denies mouth pain, Denies odynophagia, Denies throat swelling, Denies tongue swelling and Reports other (Dentition adequate) Card Reports no additional complaints Resp Reports no additional complaints GI Details: Denies abdominal pain, Denies melena, Denies bloating, Denies hematochezia, Denies constipation, Denies GI cramping, Denies dysphagia, Denies excessive flatus, Denies early satiety, Denies heartburn, Denies diarrhea, Denies nausea, Denies odynophagia, Denies vomiting and Denies hematemesis Skin/Breast Denies pruritus, Denies lesions, Denies rash and Denies jaundice Neuro Reports Normal hearing present and Denies Abnormal speech present Endo Denies fatigue Aller/Immun Denies throat swelling and Denies tongue swelling Physical Exam Vital Signs: Last Vital Signs Pulse 77 01/11/25 13:53 BP 126/82 01/11/25 13:53 BMI result Body Mass Index 34.4 Const General: cooperative, no acute distress, well developed and well groomed Nutritional Appearance: well nourished and obese Orientation/consciousness: oriented to person, oriented to place and oriented to time Limitations: No language barrier HEENT Head: Yes normocephalic and Yes atraumatic Eyes General: appearance normal, both eyes and all related structures Pupils: Equal, round and reactive pupils present Neck Neck: Yes normal visual inspection and Yes no lymphadenopathy Thyroid: Thyroid normal Resp Effort & Inspection: normal respiratory effort and able to speak in complete sentences Auscultation: clear to auscultation bilaterally Cardio Rate: regular rate Rhythm: regular rhythm Heart sounds: Normal, physiologic split S2 sound present Peripheral pulses: radial pulses present and posterior tibial pulses present GI Inspection: No distended, No Abdominal panniculus present and Yes obesity Palpation (GI): Soft to palpation, nontender, no guarding, not rigid and No hepatosplenomegaly present Percussion: Yes normal to percussion Auscultation: normal bowel sounds Rectal Exam - Male: Yes deferred Skin General skin exam: no rashes or lesions noted, turgor normal, skin not dry, no jaundice, No spider nevi and no striae Rashes: no rashes Nails: normal Neuro General: oriented to person, oriented to place and oriented to time Cranial nerves: Yes Equal, round and reactive pupils present and Yes Normal hearing present Speech: No Abnormal speech present Extrem General: Yes normal to inspection, No clubbing, No cyanosis and No edema Psych Appearance: grossly normal and well kempt Mental Status: mental status grossly normal Speech and movement: Normal speech and movement present Affect: normal affect Attitude: cooperative Thought process: Normal thought process present and not confabulating Thought content: Normal thought content present Insight: Good insight present (Psych) Judgement: Good judgement present (Psych) Assessment & Plan Assessment & Plan (1) IBS (irritable bowel syndrome): Code(s): K58.9 - Irritable bowel syndrome, unspecified Category: Medical (2) Abdominal bloating: Code(s): R14.0 - Abdominal distension (gaseous) Category: Medical Plan He is annoyed because he had to wait for his appointment as we are running late. While I do not blame him I have little control over how some of our days seem to play out. He continues to do well on his Creon in his happy and quite stable on that. He has not needed omeprazole or simethicone since starting this medication. Return office visit in 1 year since he is stable. Medications: Changed From [id number]-[id number] 37,000-97,300- 149,900 unit (Pancreaze) 2 caps PO BID 100 caps 2RF K58.9 - Irritable bowel syndrome, unspecified, R14.0 - Abdominal distension (gaseous) To [id number]-ofgazxww-csupouw 37,000-97,300- 149,900 unit (Pancreaze) 2 caps PO BID 360 caps 4RF 90 days K58.9 - Irritable bowel syndrome, unspecified, R14.0 - Abdominal distension (gaseous) Discontinued omeprazole Discontinued Reason: Doctor's Order 20 mg PO DAILY 30 days 30 caps 2RF Coding Level of Care Code Est Pt Level 3 (49838) Diagnoses IBS (irritable bowel syndrome) K58.9 Abdominal bloating R14.0
[2025-01-11 13:53] VITALS: BP 126/82; PULSE 77; BMI 34.4
--- OUTSIDE RECORDS SUMMARY | 2025-01-11 15:08 | XMS_ITS | Clinical Summary ---
Author Organization Formerly [facility] Address [address] [place] [id number] Care Team Providers Care Rail Loader Name Role Phone Pcp, No Primary Care Provider Unavailabl e Active Problems Problem Noted Date Diagnosed Date MATHEW (obstructive sleep apnea) GERD (gastroesophageal reflux disease) Social History Tobacco Use Types Packs/Day Years Used Date Smoking Tobacco: Never Assessed Sex and Gender Information Value Date Recorded Sex Assigned at Not on file Legal Sex Male 11:32 AM EDT Gender Identity Not on file Sexual Orientation Not on file Plan of Treatment Upcoming Encounters Date Type Department Care Team (Late st Contact Info) Description 03/23/2025 3:15 PM EDT Office Visit [address] [place] [id number] Monse Rodriguez PA-C [address] [place] [address] Health Maintenance Due Date Last Done Comments Hepatitis C Virus Screening 1973 HIV Screening 1986 DTaP/Tdap/Td Vaccines (1 - Tdap) 1992 Hepatitis B Vaccines (1 of 3 - 19+ 3-dose series) 02/1992 Colonoscopy 2018 Pneumococcal Vaccines 50+ (1 of 1 - PCV) 2023 Zoster (Shingles) Vaccine (1 of 2) 2023 COVID-19 Vaccine (1 - season) 2024 Influenza Vaccine 04/08/2025 Care Teams Rail Loader Relationship Specialty Start Date End Date Pcp, No PCP - General General Medicine 09/06/24
== END 2025-01-11 14:56 | disposition home or self-care (01) ==
PROVIDERS: PCP Family Medicine; Visit Provider Nurse Practitioner
DX: K58.9 Irritable bowel syndrome, unspecified (principal); R14.0 Abdominal distension (gaseous)
CPT/HCPCS: 99213